=== PATIENT | male | born 1950 | race African-American/Black ===

== ENCOUNTER 2022-02-14 18:29 | Emergency (ER) | payer BC, SELFPAY ==
[2022-02-14] MEDS ORDERED: HYDROcodone/Acetaminophen 5/325 mg Tablet ONE (19:27)
== END 2022-02-14 20:36 | disposition home or self-care (01) ==
LOC: ERS 18:29
DX: S22.41XA Multiple fractures of ribs, right side, initial encounter for closed fracture (principal); I48.91 Unspecified atrial fibrillation; I10 Essential (primary) hypertension; J44.9 Chronic obstructive pulmonary disease, unspecified; Z87.891 Personal history of nicotine dependence; Z79.899 Other long term (current) drug therapy; Z79.01 Long term (current) use of anticoagulants; W18.2XXA Fall in (into) shower or empty bathtub, initial encounter; Y92.002 Bathroom of unspecified non-institutional (private) residence as the place of occurrence of the external cause
CPT/HCPCS: 93005; 94799

== ENCOUNTER 2022-12-19 05:47 | Inpatient (IN) | payer BC, MEDICARE, SELFPAY ==
[2022-12-19] MEDS ORDERED: Aspirin 325 MG TAB ONE (06:03)
[2022-12-19] MEDS ORDERED: Furosemide 40 MG/4 ML VIAL ONE (06:05)
[2022-12-19] MEDS ORDERED: Aspirin Chewable 81 MG TAB ONE (06:21)
[2022-12-19 06:43] LABS: ALT (SGPT) 24 U/L (8-55); AST (SGOT) 28 U/L (5-34); Albumin 3.5 g/dL (3.4-4.8); Alkaline Phosphatase 90 U/L (40-110); Anion Gap 21 mmol/L (10-20); BUN (Urea Nitrogen) 62 mg/dL (8.4-25.7); Bilirubin, Total 0.7 mg/dL (0.2-1.2); Calc. Creatinine Clearance 0 mL/min (70-130); Calcium 8.8 mg/dL (7.8-10.44); Carbon Dioxide 16 mmol/L (23-31); Chloride 110 mmol/L (98-107); Estimated GFR 17; Globulin 4.7 g/dL (2.4-3.5); Glucose 142 mg/dL (83-110); Potassium 4.5 mmol/L (3.5-5.1); Protein, Total 8.2 g/dL (5.8-8.1); Sodium 142 mmol/L (136-145)
[2022-12-19 06:51] LABS: Hemoglobin 11.6 g/dL (14.0-18.0); Mean Corpuscular HGB CONC 30.4 g/dL (32.0-36.0); Mean Corpuscular Hemoglobin 28.6 pg (27.0-31.0); Mean Corpuscular Volume 94.3 fl (78.0-98.0); Mean Platelet Volume 9.7 fL (7.4-10.4); Platelet Count 148 10x3/uL (130-400); RBC Distribution Width 18.5 % (11.5-14.5); Red Blood Cell (RBC) Count 4.04 mill/uL (4.70-6.10); White Blood Cell (WBC) Count 5.5 10x3/uL (4.8-10.8)
[2022-12-19 06:53] LABS: Anisocytosis MODERATE=16-30 cells (100X) (0-5/hpf); Band 1 % (5-11); Eosinophils 3 % (0-10); Lymphocytes 19 % (21-51); MDiff Complete? YES; Monocytes 7 % (0-10); Neutrophil 70 % (42-75); Nucleated RBC (Manual Ct) 6 % (0); Platelet Morphology Comment Appears Adequate
[2022-12-19] MEDS ORDERED: cefTRIAXone (ROCEPHIN) 1 GM VIAL ONE (06:53)
[2022-12-19 07:05] LABS: CKMB 2.2 ng/mL (0-6.6)
[2022-12-19 07:11] LABS: Actual Bicarbonate (HCO3v) 20.2 mEq/L (22-28); Base Excess -6.3 mEq/L (-2.0 to +3.0); Chloride (VBG) 110 mmol/L (98-106); Hematocrit-VBG 38 % (42.0-52.0); Hemoglobin (Hb) 12.8 g/dL (12.6-17.4); Potassium (VBG) 4.62 mmol/L (3.70-5.30); Sodium 142.8 mmol/L (133-146); pH (venous) 7.282 (7.32-7.43)
[2022-12-19] MEDS ORDERED: Ipratropium/Albuterol 3 ML NEB ONE (07:23)
[2022-12-19] MEDS ORDERED: Azithromycin 500 MG VIAL ONE (07:33)
[2022-12-19] MEDS ORDERED: Furosemide 40 MG/4 ML VIAL SLOW IVP SCH (09:00)
[2022-12-19] MEDS ORDERED: Ipratropium/Albuterol 3 ML NEB NEB PRN (09:05)
[2022-12-19 10:03] LABS: Lactic Acid 2.2 mmol/L (0.5-2.2)
[2022-12-19] MEDS ORDERED: Apixaban 5 MG TAB PO SCH (11:15)
[2022-12-19 11:29] LABS: Bacteria/HPF None Seen HPF (None Seen); Bilirubin Negative (Negative); Blood, Urine Trace (Negative); CAUTI Indications for Culture Dysuria,urgency,freq; Clarity Clear (Clear); Glucose, Urine (Dipstick) Normal (Negative); Ketone, Urine Negative (Negative); Leukocyte 25 Leu/uL (Negative); Nitrite Negative (Negative); Protein, Urine (Dipstick) 20 mg/dL (Neg-Trace); RBC/HPF 0-3 HPF (0-3); Specific Gravity, Urine 1.009 (1.002-1.036); Squamous Epithelial 0-3 HPF (0-3); Urobilinogen Normal mg/dL (Less than 2)
[2022-12-19 11:31] LABS: Urine Culture Reflex No No
[2022-12-19 11:39] LABS: Troponin I 0.017 ng/mL (< 0.028)
[2022-12-19 11:47] LABS: SARS-CoV-2 NAA Rapid Test Not Detected (NotDetected)
[2022-12-19 12:08] LABS: Creatinine, Urine 33.98 mg/dL (63-166)
[2022-12-19] MEDS ORDERED: Furosemide 100 MG/10 ML VIAL SLOW IVP SCH (13:15)
[2022-12-19 13:32] LABS: Anion Gap 18 mmol/L (10-20); BUN (Urea Nitrogen) 61 mg/dL (8.4-25.7); Calc. Creatinine Clearance 0 mL/min (70-130); Calcium 8.7 mg/dL (7.8-10.44); Carbon Dioxide 15 mmol/L (23-31); Chloride 111 mmol/L (98-107); Estimated GFR 19; Glucose 128 mg/dL (83-110); Potassium 4.8 mmol/L (3.5-5.1); Sodium 139 mmol/L (136-145)
[2022-12-19 14:02] LABS: Actual Bicarbonate (HCO3a) 17.5 mEq/L (22-28); Base Excess (BEa) -6.7 mEq/L (-2.0 to +3.0); CO2 Tension 31.2 mmHg (35.0-45.0); Calcium, Ionized (arterial) 1.12 mmol/L (1.12-1.30); Hematocrit-ABG 38 % (42.0-52.0); O2 Tension (PaO2), arterial 67.8 mmHg (> 70.0); Potassium - ABG Lab 4.27 mmol/L (3.70-5.30); pH, Arterial 7.366 (7.35-7.45)
[2022-12-19 14:04] LABS: Puncture Site RRA
[2022-12-19] MEDS: Ipratropium/Albuterol 3 ML NEB NEB SCH ×3 (14:16→22:48)
[2022-12-19 16:16] VITALS: BMI 25.5
[2022-12-20] MEDS ORDERED: Albuterol 200 PUFF (6.7GM INHALER) INH PRN (00:39)
[2022-12-20] MEDS: Ipratropium/Albuterol 3 ML NEB NEB SCH ×6 (03:13→21:59)
[2022-12-20] MEDS ORDERED: cefTRIAXone\\ROCEPHIN 1 GM in Sodium Chloride 0.9% 100 ML IVPB SCH (07:00)
[2022-12-20] MEDS ORDERED: Azithromycin 250 MG TAB PO SCH (08:00)
[2022-12-20] MEDS ORDERED: predniSONE 20 MG TAB PO SCH (08:00)
[2022-12-20 08:12] LABS: #Lymphocytes 0.6 thou/uL (1.20-3.40); #Monocytes 0.9 thou/uL (0.11-0.59); %Basophils 0.3 % (0.0-1.0); %Eosinophils 0.4 % (0.0-10.0); %Monocytes 11.4 % (0.0-10.0); %Neutrophils 79.8 % (42.0-75.0); Mean Corpuscular HGB CONC 31.4 g/dL (32.0-36.0); Mean Corpuscular Hemoglobin 29.8 pg (27.0-31.0); Mean Corpuscular Volume 94.8 fl (78.0-98.0); Mean Platelet Volume 9.9 fL (7.4-10.4); Platelet Count 142 10x3/uL (130-400); RBC Distribution Width 18.4 % (11.5-14.5); Red Blood Cell (RBC) Count 3.69 mill/uL (4.70-6.10); White Blood Cell (WBC) Count 7.5 10x3/uL (4.8-10.8)
[2022-12-20] MEDS: Mometasone 100 MCG HFA INHALER (RT USE) INH SCH ×2 (08:22→18:24)
[2022-12-20 08:28] LABS: ALT (SGPT) 26 U/L (8-55); AST (SGOT) 19 U/L (5-34); Albumin 3.3 g/dL (3.4-4.8); Alkaline Phosphatase 69 U/L (40-110); Anion Gap 18 mmol/L (10-20); BUN (Urea Nitrogen) 62 mg/dL (8.4-25.7); Bilirubin, Total 0.4 mg/dL (0.2-1.2); Calc. Creatinine Clearance 24 mL/min (70-130); Calcium 8.9 mg/dL (7.8-10.44); Carbon Dioxide 20 mmol/L (23-31); Chloride 106 mmol/L (98-107); Estimated GFR 20; Glucose 126 mg/dL (83-110); Potassium 3.8 mmol/L (3.5-5.1); Protein, Total 7.3 g/dL (5.8-8.1); Sodium 140 mmol/L (136-145)
[2022-12-20] MEDS ORDERED: Clopidogrel Bisulfate 75 MG TAB PO SCH (09:00)
[2022-12-20] MEDS ORDERED: Famotidine/PF 20 mg/2ml Vial SLOW IVP SCH ×2 (09:00)
[2022-12-20] MEDS ORDERED: Heparin 1,000 UNITS/ML VIAL SLOW IVP SCH (09:00)
[2022-12-20] MEDS ORDERED: Heparin 5,000 UNITS/ML VIAL SC SCH (09:00)
[2022-12-20] MEDS ORDERED: Empagliflozin 10 MG TAB PO SCH (09:00)
[2022-12-20] MEDS ORDERED: Valsartan 80 MG TAB PO SCH (09:00)
[2022-12-20] MEDS ORDERED: Furosemide 40 MG/4 ML VIAL SLOW IVP SCH (09:00)
[2022-12-20] MEDS ORDERED: Carvedilol 25 MG TAB PO SCH (09:00)
[2022-12-20] MEDS: Ferrous Sulfate 325 MG TAB PO SCH ×2 (10:21→16:32)
[2022-12-20] MEDS: Carvedilol 25 MG TAB PO SCH ×2 (10:22→16:32)
[2022-12-20] MEDS ORDERED: HYDROcodone/Acetaminophen 10/325 mg Tablet PO PRN (11:21)
[2022-12-20 11:57] VITALS: BP 123/86
[2022-12-20] MEDS: HYDROcodone/Acetaminophen 10/325 mg Tablet PO SCH ×2 (16:33→21:22)
[2022-12-20] MEDS ORDERED: Apixaban 5 MG TAB PO SCH (21:00)
[2022-12-20] MEDS ORDERED: Carvedilol 6.25 MG TAB PO SCH (21:00)
[2022-12-20] MEDS ORDERED: Sodium Bicarbonate Tab 325 MG TAB PO SCH (22:00)
[2022-12-21 00:38] VITALS: TEMP 98.1
[2022-12-21] MEDS ORDERED: Sodium Bicarb 50 MEQ/50 ML Abboject 8.4% SYRINGE ONE (01:13)
[2022-12-21] MEDS ORDERED: Calcium Chloride 1 GM/10 ML Abboject SYRINGE ONE (01:13)
[2022-12-21] MEDS ORDERED: Dextrose 50% Abboject 50 ML SYRINGE ONE (01:13)
[2022-12-21] MEDS ORDERED: EPINEPHrine 1 MG/10 ML Abboject SYRINGE ONE (01:13)
[2022-12-21] MEDS ORDERED: Levothyroxine Sodium 25 MCG TAB PO SCH (06:00)
[2022-12-21] MEDS ORDERED: Levothyroxine Sodium 112 MCG TAB PO SCH (06:00)
[2022-12-21] MEDS ORDERED: Rosuvastatin 5 MG TAB PO SCH (09:00)
== END 2022-12-21 01:31 | disposition expired | DRG 291 ==
LOC: ERS 05:47 → ERHOLD 07:54 → IMCU/EMU 13:36
PROVIDERS: ADMIT Family Medicine; ATTEND Family Medicine
PROC: 5A09357 Assistance with Respiratory Ventilation, Less than 24 Consecutive Hours, Continuous Positive Airway Pressure (ICD-10-PCS; 2022-12-19)
PROC: 4A033R1 Measurement of Arterial Saturation, Peripheral, Percutaneous Approach (ICD-10-PCS; 2022-12-19)
PROC: 5A12012 Performance of Cardiac Output, Single, Manual (ICD-10-PCS; principal; 2022-12-21)
DX: I13.0 Hypertensive heart and chronic kidney disease with heart failure and stage 1 through stage 4 chronic kidney disease, or unspecified chronic kidney disease (principal); I50.43 Acute on chronic combined systolic (congestive) and diastolic (congestive) heart failure; J96.21 Acute and chronic respiratory failure with hypoxia; N17.9 Acute kidney failure, unspecified; J44.1 Chronic obstructive pulmonary disease with (acute) exacerbation; N18.4 Chronic kidney disease, stage 4 (severe); I25.110 Atherosclerotic heart disease of native coronary artery with unstable angina pectoris; F32.A Depression, unspecified; I34.0 Nonrheumatic mitral (valve) insufficiency; I27.20 Pulmonary hypertension, unspecified; I48.0 Paroxysmal atrial fibrillation; I42.9 Cardiomyopathy, unspecified; D63.1 Anemia in chronic kidney disease; I46.9 Cardiac arrest, cause unspecified; E03.9 Hypothyroidism, unspecified; I35.0 Nonrheumatic aortic (valve) stenosis; I73.9 Peripheral vascular disease, unspecified; D69.6 Thrombocytopenia, unspecified; Z20.822 Contact with and (suspected) exposure to COVID-19; Z87.891 Personal history of nicotine dependence; Z79.899 Other long term (current) drug therapy; Z98.890 Other specified postprocedural states; Z95.5 Presence of coronary angioplasty implant and graft
CPT/HCPCS: 36415; 36600; 71045; 76770; 80053; 81001; 82553; 82570; 82805; 83605; 83880; 83970; 84145; 84484; 84540; 85025; 87040; 87086; 93005; 93306; 93798; 94640; 94660; 96365; 96366; 96367; 96375; J0171; J0456; J0696; J1644; J1940; J3490; J7512; J7620; J7999; S0028